=== PATIENT | female | born 1990 ===

== ENCOUNTER → 2021-04-15 | Day surgery (SDC) | payer OTHER ==
[~2021-04-15] VITALS: Ht 157.5 cm; Wt 82.5 kg
[~2021-04-15] MED LIST: BUSPIRONE HCL15 MG PO
[2021-04-15 08:15] LABS: HCG (URINE) SCREEN NEGATIVE (NEGATIVE)
[2021-04-15 08:23] LABS: BASOPHIL 0.5 % (0-2); EOSINOPHIL 1.7 % (0-5); HCT 39.8 % (37.0-47.0); HGB 13.4 g/dl (12.5-16.0); LYMPHOCYTE 30.3 % (15-48); MCH 28.4 pg (25.0-31.0); MCHC 33.7 g/dL (32.0-36.0); MCV 84.3 fL (78.0-100.0); MONOCYTE 5.3 % (0-12); MPV 9.9 fL (6.0-9.5); NEUTROPHIL 61.9 % (41-80); NRBC 0; PLT 277 K/uL (150-400); RBC 4.72 M/uL (4.20-5.40); RDW 12.3 % (11.5-14.0); WBC 6.6 K/uL (4.0-10.5)
== END | disposition home or self-care (01) ==
LOC: FAS 07:53
PROVIDERS: Oral & Maxillofacial Surgery
DX: K02.9 Dental caries, unspecified (principal); K04.7 Periapical abscess without sinus; F41.9 Anxiety disorder, unspecified; E66.9 Obesity, unspecified; Z68.33 Body mass index [BMI] 33.0-33.9, adult; F17.210 Nicotine dependence, cigarettes, uncomplicated
CPT/HCPCS: 36415; 84703; 85025; J1100; J1170; J2250; J2405; J2704; J2710; J3010; J7120